=== PATIENT | female | born 1965 | race Caucasian/White ===

== ENCOUNTER 2020-03-26 20:09 | Emergency (ER) | payer BC ==
[2020-03-26 20:19] VITALS: O2SAT 94
[2020-03-26] MEDS ORDERED: TORAdol 30 mg Injection IM ONE (20:25)
--- NOTE | 2020-03-26 20:27 | ERPHSYRPT ---
- History of Present Illness Time Seen by Provider: 03/26/20 20:20 Source: patient Exam Limitations: no limitations Physician History: Patient is a 54yo F presents to ED for evaluation of left knee pain. She was jumping on a trampoline when her grandchild bumped into her left knee causing it to buckle. No other injuries reported. Pain worse with movement, palpation and weight bearing. Pain improves with rest Method of Injury: sports injury Occurred: just prior to arrival Quality: constant Severity of Pain-Max: moderate Severity of Pain-Current: mild Lower Extremities Pain: knee: left Modifying Factors: Improves With: nothing Associated Symptoms: none Allergies/Adverse Reactions: No Known Drug Allergies Allergy (Verified 03/26/20 20:29) Home Medications: No Reportable Medications [No Reported Medications] 03/26/20 [History] Hx Tetanus, Diphtheria Vaccination/Date Given: No Hx Influenza Vaccination/Date Given: No Hx Pneumococcal Vaccination/Date Given: No - Review of Systems Constitutional: No Symptoms, No Fever, No Chills Eyes: No Symptoms Ears, Nose, & Throat: No Symptoms Respiratory: No Symptoms, No Cough, No Dyspnea Cardiac: No Symptoms, No Chest Pain, No Edema, No Syncope Abdominal/Gastrointestinal: No Symptoms, No Abdominal Pain, No Nausea, No Vomiting, No Diarrhea Genitourinary Symptoms: No Symptoms, No Dysuria Musculoskeletal: No Symptoms, No Back Pain, No Neck Pain Skin: No Symptoms, No Rash Neurological: No Symptoms, No Dizziness, No Focal Weakness, No Sensory Changes Psychological: No Symptoms Endocrine: No Symptoms Hematologic/Lymphatic: No Symptoms Immunological/Allergic: No Symptoms All Other Systems: Reviewed and Negative - Past Medical History Pertinent Past Medical History: No Neurological History: Seizures Cardiac History: No Pertinent History Respiratory History: No Pertinent History Endocrine Medical History: No Pertinent History Musculoskeletal History: Fibromyalgia Other Medical History: B carpal tunnel. - Past Surgical History Past Surgical History: Yes Musculoskeletal: Orthopedic Surgery Female Surgical History: Section, Other - Social History Smoking Status: Never smoker Exposure to second hand smoke: No Drug Use: none Patient Lives Alone: No - Nursing Vital Signs Nursing Vital Signs: Initial Vital Signs Temperature 98.0 F 03/26/20 20:17 Pulse Rate 68 03/26/20 20:17 Respiratory Rate 15 03/26/20 20:17 Blood Pressure 117/71 03/26/20 20:17 O2 Sat by Pulse Oximetry 94 L 04/27/20 20:17 Pain Scale Pain Intensity 10 - Physical Exam General Appearance: no apparent distress, alert Eyes, Ears, Nose, Throat Exam: moist mucous membranes Neck Exam: normal inspection, non-tender, supple Cardiovascular/Respiratory Exam: chest non-tender, normal breath sounds, regular rate/rhythm, no respiratory distress Gastrointestinal/Abdominal Exam: non-tender, guarding Back Exam: normal inspection, No vertebral tenderness Hips Exam: bilateral: non-tender, normal inspection, normal range of motion, no evidence of injury Legs Exam: bilateral leg: non-tender, normal inspection, normal range of motion , no evidence of injury Knees Exam: left knee: normal inspection, normal range of motion, no evidence of injury, bone tenderness Ankle Exam: bilateral ankle: non-tender, normal inspection, normal range of motion, no evidence of injury DTR - Lower Extremities Exam: knee (R): 2+, knee (L): 2+ Neuro/Tendon Exam: normal sensation, normal motor functions Mental Status Exam: alert, oriented x 3, cooperative Skin Exam: normal color, warm, dry SpO2 Interpretation: normal SpO2: 94 O2 Delivery: Room Air - Course Nursing assessment & vital signs reviewed: Yes - Radiology Exams Knee X-ray Interpretation: Teleradiologist Report (No fractures or dislocations. ) Ordered Tests: Active Orders 24 hr Category Date Time Status Cesar Bandage Application -[facility] STAT Care 03/26/20 21:10 Active Isolation, Initiate & Maintain Q4H Care 03/26/20 20:28 Active KNEE (1 OR 2 VIEW) Stat Exams 03/26/20 20:25 Taken Medication Summary Discontinued Medications Generic Name Dose Route Start Last Admin Trade Name Dayneq PRN Reason Stop Dose Admin Ketorolac Tromethamine 30 mg 03/26/20 20:25 03/26/20 20:34 Toradol 30 Mg Injection IM 03/26/20 20:26 30 mg STAT ONE Administration Ketorolac Tromethamine Confirm 03/26/20 20:32 Toradol 30 Mg Injection Administered 03/26/20 20:33 Dose 30 mg .ROUTE .STK-MED ONE - Progress Progress: improved - Departure Departure Disposition: Home Clinical Impression: Knee sprain Condition: Stable Critical Care Time: No Referrals: ALVARO RÍOS MD [Primary Care Provider] - Outpatient Orders: Ortho Referral Time Frame: 1 Day, Location: [facility]
[2020-03-26] MEDS ORDERED: TORAdol 30 mg Injection ONE (20:32)
[2020-03-26 21:21] VITALS: BP 120/70; PULSE 70
--- NOTE | 2020-03-27 08:49 | XRAY ---
Indication: Pain following fall. Comparison: None 2 view left knee demonstrates small posterior fabella. No other bony, articular, or soft tissue abnormalities.
== END 2020-03-26 21:30 | disposition home or self-care (01) ==
LOC: ED 20:09
DX: S83.92XA Sprain of unspecified site of left knee, initial encounter (principal); W51.XXXA Accidental striking against or bumped into by another person, initial encounter; Y93.44 Activity, trampolining; Y99.8 Other external cause status; G40.909 Epilepsy, unspecified, not intractable, without status epilepticus; M79.7 Fibromyalgia
CPT/HCPCS: 73560; 96372; 99284; J1885

== ENCOUNTER 2020-12-12 16:18 | Emergency (ER) | payer BC ==
[2020-12-12 16:31] VITALS: BP 173/100; PULSE 79; O2SAT 98
--- NOTE | 2020-12-12 16:50 | ERPHSYRPT ---
- History of Present Illness Time Seen by Provider: 12/12/20 16:19 Source: patient Exam Limitations: no limitations Patient Subjective Stated Complaint: Pt was stepping up on the bed with her right leg when her left leg buckled and her ankle "popped" Triage Nursing Assessment: Pt brought to the ER by her , hypertensive, left lateral ankle swollen and beginning to bruise, pt states that there is a plate and screws in the lateral side of that ankle, pulses normal, rates pain 5/10, pt denies any other injuries Physician History: 55 years old female with history of left ankle surgery in the past with hardware implant presented in the ER with chief complaint of left ankle pain and swelling after she was getting into bed with her left knee buckled and heard a popping sound in left ankle this afternoon. She was able to get up and walk but having moderate intensity sharp pain and gradually started to swell. She has minimal pain in the left knee. No difficulty movements of toes and no foot pain. Method of Injury: twisted Occurred: this afternoon Quality: constant Severity of Pain-Max: moderate Severity of Pain-Current: mild Lower Extremities Pain: knee: left, ankle: left Modifying Factors: Improves With: cold therapy, immobilization, pain medication, rest. Worsens With: movement Associated Symptoms: popping sensation Allergies/Adverse Reactions: No Known Drug Allergies Allergy (Verified 12/12/20 16:31) Home Medications: Tolterodine Tartrate [Tolterodine Tartrate ER] 4 mg PO DAILY 12/12/20 [History] Hx Tetanus, Diphtheria Vaccination/Date Given: No Hx Influenza Vaccination/Date Given: No Hx Pneumococcal Vaccination/Date Given: No Travel Risk - International Travel Have you traveled outside of the country in past 3 weeks: No - Coronavirus Screening Are you exhibiting any of the following symptoms?: No Close contact with a COVID-19 positive Pt in past 14-21 Days: No - Review of Systems Constitutional: No Symptoms Eyes: No Symptoms Ears, Nose, & Throat: No Symptoms Respiratory: No Symptoms Cardiac: No Symptoms Abdominal/Gastrointestinal: No Symptoms Genitourinary Symptoms: No Symptoms Musculoskeletal: Joint Pain, Joint Swelling Skin: No Symptoms Neurological: No Symptoms Psychological: No Symptoms Endocrine: No Symptoms Hematologic/Lymphatic: No Symptoms Immunological/Allergic: No Symptoms - Past Medical History Pertinent Past Medical History: Yes Neurological History: No Pertinent History ENT History: No Pertinent History Cardiac History: No Pertinent History Respiratory History: No Pertinent History Endocrine Medical History: No Pertinent History Musculoskeletal History: Arthritis GI Medical History: Diverticulitis History: No Pertinent History Psycho-Social History: No Pertinent History Female Reproductive Disorders: No Pertinent History Other Medical History: B carpal tunnel. - Past Surgical History Past Surgical History: Yes Neuro Surgical History: No Pertinent History Cardiac: No Pertinent History Respiratory: No Pertinent History Gastrointestinal: No Pertinent History Genitourinary: No Pertinent History Musculoskeletal: Orthopedic Surgery Female Surgical History: Section, Other - Social History Smoking Status: Never smoker Exposure to second hand smoke: No Drug Use: none Patient Lives Alone: No - Female History Hx Now: No - Nursing Vital Signs Nursing Vital Signs: Initial Vital Signs Temperature 98.3 F 12/12/20 16:21 Pulse Rate 79 12/12/20 16:21 Blood Pressure 173/100 12/12/20 16:21 O2 Sat by Pulse Oximetry 98 12/12/20 16:21 Pain Scale Pain Intensity 5 - Physical Exam General Appearance: no apparent distress Neck Exam: normal inspection, supple, full range of motion Cardiovascular/Respiratory Exam: chest non-tender, normal breath sounds, regular rate/rhythm Back Exam: normal inspection, normal range of motion Knees Exam: left knee: pain, soft tissue tenderness, bilateral knee: non-tender, normal inspection, normal range of motion, no evidence of injury Ankle Exam: right ankle: non-tender, normal inspection, normal range of motion, no evidence of injury, left ankle: bone tenderness (Lateral malleolus), limited range of motion, pain, soft tissue tenderness, swelling Foot Exam: bilateral foot: non-tender, normal inspection, normal range of motion, no evidence of injury Neuro/Tendon Exam: normal sensation, normal motor functions Mental Status Exam: alert, oriented x 3 Skin Exam: normal color SpO2 Interpretation: normal SpO2: 98 O2 Delivery: Room Air Ordered Tests: Active Orders 24 hr Category Date Time Status Ice Pack, Apply PRN Care 12/12/20 16:29 Completed ANKLE (3 VIEWS) Stat Exams 12/12/20 16:52 Completed - Progress Progress: improved, pain not gone completely, re-examined Progress Note: 12/12/20 17:06 She is offered symptomatic treatment for pain which she refused. I have obtained x-rays ankle which ruled out fracture dislocation. She has old fracture with intact hardware. I believe patient has ligamentous strain/sprain. Placed in a long walking boot, weightbearing as tolerated and outpatient podiatry follow-up. Counseled pt/family regarding: diagnosis, need for follow-up, rad results - Departure Departure Disposition: Home Clinical Impression: Left ankle sprain Qualifiers: Encounter type: initial encounter Involved ligament of ankle: unspecified ligament Qualified Code(s): S93.402A - Sprain of unspecified ligament of left ankle, initial encounter Condition: Stable Critical Care Time: No Referrals: ALVARO RÍOS MD [Primary Care Provider] - Follow Up with PCP/3 days COLLEEN HOLLOWAY NP [NON-STAFF PHY W/O PRIVILEGES] - (1-2 days for reevaluation) Instructions: Ankle Sprain (DC) Additional Instructions: Take Tylenol/ibuprofen as needed. Keep it elevated. Apply ice. Follow-up with podiatry for reevaluation next couple of days. Avoid exertional activities. Weightbearing as tolerated. Return to ER for any worsening.
--- NOTE | 2020-12-12 17:02 | XRAY ---
Indication: Pain and swelling following injury. Comparison: July 05, 2013. 3 view left ankle again demonstrates old lateral malleolus fracture with intact fixation plate/screws. New mild anterolateral soft tissue swelling and tiny medial talotibial heterotopic ossifications. No other bony, articular, or soft tissue abnormalities.
== END 2020-12-12 17:24 | disposition home or self-care (01) ==
LOC: ED 16:18
DX: S93.402A Sprain of unspecified ligament of left ankle, initial encounter (principal); M25.472 Effusion, left ankle; M25.562 Pain in left knee; I10 Essential (primary) hypertension
CPT/HCPCS: 73610; 99283; L4386